=== PATIENT | female | born 1935 | race Caucasian/White ===

== ENCOUNTER 2016-07-20 15:59 | Emergency (ER) | payer MEDICARE, OTHER ==
--- NOTE | ~2016-07-20 | CT16 ---
[facility] A Service of [facility] RADIOLOGY TEXT RESULTS PATIENT: ROWAN ARANGO LOCATION: SED : 33 UNIT #: [id number] AGE: [address]: Khang Zamudio MD SEX: F ORDER DR: [id number] [address] [address] [id number] E MR#: [id number] Acc #: [id number] NAME: ROWAN ARANGO : 1935 SEX: F STUDY DATE/TIME: 07/20/2016 17:42 UNIT: SED ROOM: STUDY DESCRIPTION: CT Angio Chest for PE Attending Physician: (Er) Tirso Blanc Ordering Physician: (Er) Tirso Blanc Primary Care Physician: Lora Cooper A.P.R.N. MEDICAL IMAGING REPORT This report is preliminary unless electronic signature is present. EXAM CT chest, PE protocol. HISTORY Shortness of air x1 week. COMPARISON CT chest, 07/23/2015. TECHNIQUE NOTE: This CT exam was performed with one or more of the following radiation dose reduction techniques: automatic exposure control, adjustment of mA and/or kV according to patient size, and iterative reconstruction. FINDINGS Axial images performed through the chest following IV contrast according to PE protocol. 3-D coronal and sagittal reconstructed images reviewed at a workstation. Examination demonstrates a 1.5 x 1.68 cm noncalcified nodule right lower lobe with some tethering to the pleural surface. This is not significantly changed from the patient's study from 07/23/2015, and is most compatible benign disease. Mild prominence of the interstitial and interlobular septa may represent some interstitial fibrosis or edema. There are small bilateral pleural effusions. Cardiomegaly. Trachea and bronchi unremarkable. No evidence of embolus. Shotty mediastinal adenopathy. Aortic atherosclerotic changes. Upper abdomen unremarkable except for postcholecystectomy changes. Right renal cortical cyst. IMPRESSION 1. No evidence of pulmonary embolus. 2. Trace bilateral effusions right greater than left with mild STS. [facility] A Service of [facility] RADIOLOGY TEXT RESULTS PATIENT: ROWAN ARANGO LOCATION: SED : 33 UNIT #: [id number] AGE: [address]: Khang Zamudio MD SEX: F ORDER DR: thickening of interlobular septa could represent a component of interstitial edema may represent early CHF. 3. Stable noncalcified nodule right lower lobe probably reflects benign disease. Dictated by... Senait Macario M.D. THIS IS AN ELECTRONICALLY VERIFIED REPORT Senait Macario M.D. at 07/21/2016 2:04 PM Seda TD: 07/20/2016 20:47 JOB #: [id number] MEDICAL IMAGING REPORT Page 1 of 1
--- NOTE | ~2016-07-20 | CR72 ---
[facility] A Service of [facility] RADIOLOGY TEXT RESULTS PATIENT: ROWAN ARANGO LOCATION: SED : 33 UNIT #: [id number] AGE: [address]: Tirso Blanc DO SEX: F ORDER DR: [id number] [address] [address] [id number] E MR#: [id number] Acc #: [id number] NAME: ROWAN ARANGO : 1935 SEX: F STUDY DATE/TIME: 07/20/2016 16:22 UNIT: SED ROOM: STUDY DESCRIPTION: CR Chest Single View Portable Attending Physician: (Er) Tirso Blanc Ordering Physician: (Er) Tirso Blanc Primary Care Physician: Lora Cooper A.P.R.N. MEDICAL IMAGING REPORT This report is preliminary unless electronic signature is present. EXAM Portable chest. HISTORY 81-year-old female, shortness of air, difficulty breathing x1 week. Smoker. COMPARISON 09/12/2015 FINDINGS Portable view of the chest demonstrates moderate lung volumes slightly underpenetrated technique. This may be exacerbated by body habitus. There is cardiomegaly with prominence of pulmonary vascular interstitium which may reflect underlying CHF. No effusions. Mild aortic atherosclerotic changes. No invasive tubes or lines. No pneumothorax. Dictated by... Senait Macario M.D. THIS IS AN ELECTRONICALLY VERIFIED REPORT Senait Macario M.D. at 07/20/2016 8:37 PM Seda TD: 07/20/2016 19:35 JOB #: [id number] MEDICAL IMAGING REPORT Page 1 of 1
--- NOTE | ~2016-07-20 | EKG ---
PATIENT: ROWAN ARANGO UNIT #: [id number] Ventricular Rate: 92 BPM Atrial Rate: 267 BPM QRS Duration: 88 ms Q-T Interval: 384 ms QTC Calculation(Bezet): 474 ms Calculated R [place]: 17 degrees Calculated T [place]: 43 degrees Diagnosis Line: Atrial flutter with variable A-V block Diagnosis Line: Poor R wave progression questionable lead position Diagnosis Line: or body habitus Diagnosis Line: Abnormal ECG Diagnosis Line: When compared with ECG of 12-SEP-2015 16:13, Diagnosis Line: ST elevation now present in Inferior leads Diagnosis Line: QT has shortened Diagnosis Line: Confirmed by YOLA BEARD MD ([id number]) on 07/25/2016 Diagnosis Line: 11:56:30 AM INTERPRETING MD: CHIRAG MEDRANO
[~2016-07-20 15:59] MED LIST: ACTOS PO; ALBUTEROL17 GM INH; ALDACTONE25 MG PO; AMBIEN10 MG PO; ASPIRIN EC81 M1 PO; AUGMENTIN875 MG PO; AZOR; AZOR 10-20 MG1 UDTAB; AZOR 10/40 MG T1 TAB PO; BENAZEPRIL PO; CALCIUM 500 + D1 TAB PO; CALCIUM 5001 TAB PO; COMBIVENT U/D3 M2 INH; COREG6.25 MG PO; CYCLOBENZAPRINE5 MG PO; DARVOCET-N 1001 TAB PO; DIFLUCAN100 MG PO; EFFEXOR PO; EFFEXOR XR150 MG PO; ELIQUIS5 MG PO; FLEXERIL10 M1 PO; GLUCOPHAGE500 M1 PO; GLYNASE PO; HCTZ PO; HYDRALAZINE HCL50 MG PO; HYDROMET SYRUP480 ML PO; IMDUR-ER30 M2 PO; INSULIN; IRON1 TAB PO; K-DUR20 ME1 PO; LASIX PO; LASIX20 MG PO; LEVEMIR FL100 UNIT/1 SUBQ; LEVEMIR100 U/ML; LIPITOR PO; LOPRESSOR PO; LORAZEPAM0.5 MG PO; LOSARTAN POTAS100 MG PO; LUTEIN20 M1 PO; MICRONASE5 M2 PO; MUCINEX D ER T1 EAC1 PO; NEPHROCAPS CAPSU1 MG PO; NIFEREX-150 CAP1 CAP PO; NIFEREX-150150 MG PO; NITROSTAT0.4 MG SL; NORVASC10 MG PO; NOVOLOG FL100 UNIT/1 SUBQ; NOVOLOG100 U/M1; PERCOCET 5-3251 TAB PO; PHENERGAN25 M1 PO; PHENERGAN25 MG PO; PRADAXA150 MG; PRAVASTATIN SOD10 MG PO; PREDNISONE PO; PRILOSEC PO; SEROQUEL PO; TYLENOL80 MG/0.2 PO; VOLTAREN75 MG PO; XARELTO20 MG PO; ZANTAC PO; ZOLOFT100 MG PO; [UNRECOGNIZED DRUG - REMARK]
[2016-07-20 16:09] LABS: BASOPHIL# 0.1 X10e3 (0-0.3); BASOPHIL% 0.8 % (0-2.5); EOSINOPHIL# 0.3 X10e3 (0-0.7); EOSINOPHIL% 3.5 % (0.0-7.0); HEMATOCRIT 40.5 % (35.0-45.0); HEMOGLOBIN 13.7 gm/dL (12.0-16.0); LYMPHOCYTE# 2.3 X10e3 (1.0-3.5); MEAN CORPUSCULAR HEMOGLOBIN 30.4 PG (28-34); MEAN CORPUSCULAR HGB CONC 33.8 g/dL (30-36); MEAN PLATELET VOLUME 8.2 FL (6.5-11.5); MONOCYTE# 0.8 X10e3 (0-1.0); MONOCYTE% 8.5 % (3.0-12.0); NEUTROPHIL# 6.4 X10e3 (1.5-7.1); NEUTROPHIL% 64.2 % (40-75); PLATELET COUNT 191 X10e3 (140-420); RED CELL DISTRIBUTION WIDTH 13.8 % (11.0-15.5); WHITE BLOOD COUNT 9.9 X10e3 (4.0-10.5)
[2016-07-20 16:11] LABS: DIFF IND NO
[2016-07-20 16:17] LABS: INR 1.1; PROTHROMBIN TIME (PATIENT) 12.5 SECONDS (9.5-12.4)
[2016-07-20 16:24] LABS: PARTIAL THROMBOPLASTIN TIME 32.8 SECONDS (25.6-38.1)
[2016-07-20 16:25] LABS: POC - TROPONIN <0.05 ng/mL (<=0.05)
[2016-07-20 16:26] LABS: ALBUMIN SERUM 4.2 g/dL (3.5-5.0); BILIRUBIN, DIRECT 0.2 mg/dL (0.0-0.2); BILIRUBIN,INDIRECT 0.5 mg/dL (0.0-0.9); BILIRUBIN,TOTAL 0.7 mg/dL (0.2-2.0); BUN/CREATININE RATIO 28.75; CREATININE SERUM 0.8 mg/dL (0.6-1.4); GLOM FILT RATE Estimated 68.2 mL/min (>60); POTASSIUM 4.2 mmol/L (3.5-5.1); PROTEIN TOTAL SERUM 6.9 g/dL (6.0-8.3)
[2016-07-20 16:49] LABS: ARTERIAL BLD GAS O2 SATURATION 95.1 % (90.0-100.0); ARTERIAL BLOOD GAS CARBOXY HB 2.9 %sat (0.0-9.0); ARTERIAL BLOOD GAS HCO3 22.5 mmol/L
[2016-07-20 16:53] LABS: ARTERIAL BLOOD GAS ALLEN TEST NORMAL; ARTERIAL BLOOD GAS ART SITE LEFT RADIAL; ARTERIAL DRAW? YES
[2016-07-20 17:59] LABS: POC - CKMB 9.3 ng/mL (0.0-7.9); POC - TROPONIN <0.05 ng/mL (<=0.05)
== END 2016-07-20 21:45 ==
LOC: SED 15:59
PROVIDERS: Emergency Medicine
DX: I11.0 Hypertensive heart disease with heart failure (principal); I50.9 Heart failure, unspecified; E11.9 Type 2 diabetes mellitus without complications; I48.92 Unspecified atrial flutter; Z79.4 Long term (current) use of insulin
CPT/HCPCS: 36415; 36600; 71010; 71275; 80048; 80076; 82553; 82803; 83880; 84484; 85025; 85610; 85730; 93005; 96372; 96374; 99285; J1650; J1940; Q9967

== ENCOUNTER 2016-09-23 12:25 | Emergency (ER) | payer MEDICARE ==
--- NOTE | ~2016-09-23 | US85 ---
[facility] A Service of [facility] RADIOLOGY TEXT RESULTS PATIENT: ROWAN ARANGO LOCATION: SED : 33 UNIT #: [id number] AGE: [address]: Jaclyn Muniz MD SEX: F ORDER DR: [id number] [address] [address] [id number] E MR#: [id number] Acc #: [id number] NAME: ROWAN ARANGO : 1935 SEX: F STUDY DATE/TIME: 09/23/2016 13:29 UNIT: SED ROOM: STUDY DESCRIPTION: LE Veins Unilat or Ltd Stdy Attending Physician: Jaclyn Muniz M.D. Ordering Physician: Jaclyn Muniz M.D. Primary Care Physician: Lora Cooper A.P.R.N. MEDICAL IMAGING REPORT This report is preliminary unless electronic signature is present. EXAM Left lower extremity Doppler venous ultrasound 09/23/2016 HISTORY Palpable abnormality in the left lower extremity for 2 days with bruising. COMPARISON None. TECHNIQUE Real-time lo-scale, color Doppler spectral Doppler images of the left lower extremity veins from the groin to the calf region. FINDINGS The left popliteal vein does not appear to compress, but there is detectable color and spectral Doppler flow within it. Remainder of the left extremity veins demonstrates normal flow, compressibility and/or augmentation, no deep venous thrombosis is seen. IMPRESSION 1. No definite deep venous thrombosis is seen in the left lower extremity. Of note, there is incomplete compressibility of the left popliteal vein, although there is demonstrable color flow and spectral Doppler flow within it. If the patient's symptoms persist, consider repeat imaging in a couple of days. Dictated by... Chichi Sahni M.D. THIS IS AN ELECTRONICALLY VERIFIED REPORT [facility] A Service of [facility] RADIOLOGY TEXT RESULTS PATIENT: ROWAN ARANGO LOCATION: SED : 33 UNIT #: [id number] AGE: [address]: Jaclyn Muniz MD SEX: F ORDER DR: Chichi Sahni M.D. at 09/25/2016 2:17 PM LLH/hai TD: 09/23/2016 21:34 JOB #: [id number] MEDICAL IMAGING REPORT Page 1 of 1
[2016-09-23] MEDS ORDERED: LISINOPRIL (12:33)
== END 2016-09-23 15:13 | disposition home or self-care (01) ==
LOC: SED 12:25
DX: S80.12XA Contusion of left lower leg, initial encounter (principal); E78.5 Hyperlipidemia, unspecified; I11.0 Hypertensive heart disease with heart failure; E11.9 Type 2 diabetes mellitus without complications; I50.9 Heart failure, unspecified; J44.9 Chronic obstructive pulmonary disease, unspecified; Z90.710 Acquired absence of both cervix and uterus; Z90.49 Acquired absence of other specified parts of digestive tract; X58.XXXA Exposure to other specified factors, initial encounter; Y92.9 Unspecified place or not applicable
CPT/HCPCS: 93971; 99283